=== PATIENT | female | born 1940 | race Two or more races ===

== ENCOUNTER 2023-10-12 01:58 | Day surgery (SDC) | payer OTHER | END 2023-10-12 23:11 | disposition home or self-care (01) | LOC: WOUND 01:58 | DX: L97.822 Non-pressure chronic ulcer of other part of left lower leg with fat layer exposed (principal); I73.9 Peripheral vascular disease, unspecified | CPT/HCPCS: G0463 ==

== ENCOUNTER 2023-11-09 02:42 | Day surgery (SDC) | payer OTHER ==
[2023-11-09] MEDS ORDERED: Triamcinolone Acet 0.1% Cream 15 gm ONE (13:22)
== END 2023-11-09 22:36 | disposition home or self-care (01) ==
LOC: WOUND 02:42
DX: I83.029 Varicose veins of left lower extremity with ulcer of unspecified site (principal); I87.2 Venous insufficiency (chronic) (peripheral)
CPT/HCPCS: A9270; G0463

== ENCOUNTER 2024-03-31 09:12 | Day surgery (SDC) | payer OTHER ==
[2024-03-31] VITALS (10 sets, daily range): BP systolic 117–179; BP diastolic 62–94
[~2024-03-31] VITALS: Ht 152.4 cm; Wt 52.2 kg
[~2024-03-31 09:12] MED LIST: ALPR.25 PO; BIMATOPROST5 ML BOTHEYES; CAND16 PO; ESCI10 PO; LOSA25 PO; LUMIGAN2.5 ML BOTHEYES; NITR.4SL SL; Pentoxifylline400 MG PO; TIMDOROPSO BOTHEYES; Triamcinolone A15 G3 TOP; [UNRECOGNIZED DRUG - OTHER] TOP
[2024-03-31] MEDS ORDERED: NS 250 ML IV ONE (11:14)
[2024-03-31] MEDS ORDERED: Heparin Sodium 1000 Units/ML 10ML MDV ONE (11:14)
[2024-03-31] MEDS ORDERED: NS 1,000 ML IV ONE ×2 (11:15→11:25)
[2024-03-31] MEDS ORDERED: FentaNYL Citrate 50 MCG/ML 2 ML Injection ONE ×2 (11:25→12:07)
[2024-03-31] MEDS ORDERED: Midazolam HCl 1MG / ML 2ML Vial ONE ×2 (11:25→12:06)
--- NOTE | 2024-03-31 12:45 | NUR ---
PT BACK TO RECOVERY ROOM. PT ALERT AND ORIENTED. PT VERBALIZE UNDERSTANDING TO KEEP HEAD AND LEGS DOWN VIA INTURPRETER PHONE. ANGIOSEAL TO R GROIN. NO HEMATOMA OR BLEEDING NOTED. DR LEGGETT TO ROOM TO EXPLAIN THE PROCEDURE WITH OVEN LOADER.
--- NOTE | 2024-03-31 12:45 | NUR ---
ASSUMED CARE OF PT POST PROCEDURE. PT SPEAKS MINIMAL [place], BUT IS COOPERATIVE; DAUGHTER AT BEDSIDE AND HELPS WITH TRANSLATING. PT DENIES PAIN POST PROCEDURE. MONITOR SB 40'S, B/P 157/93, SPO2 100 % RA. R FEMORAL SITE NO SWELLING/HEMATOMA, TEGADERM DRSG INTACT; ANGIO SEAL DEPLOYED, RLE: DOPPLER X 2.
--- NOTE | 2024-03-31 14:05 | NUR ---
HOB ELEVATED TO 30 DEGREES, SITE UNCHANGED. PT TAKING SOME FOOD WITHOUT ISSUE.
--- NOTE | 2024-03-31 14:33 | NUR ---
REPORT TO TAVIA FRENCH; ALL QUESTIONS ANSWERED.
--- NOTE | 2024-03-31 16:15 | NUR ---
DAUGHTER & PT. VERABLIZED UNDERSTANDING OF DISCHARGE INSTRUCTION AND PRECAUTIONS, GROIN SITE SOFT AND NONTENDER, NAMAN HEMATOMA, NO BLEEDING. NO FURTHER QUESTIONS. IV SITE DCED WITH CATHETER INTACT. PT TAKEN VIA WHEEL CHAIR TO WAITING CAR BY [employer] SQUIRES. DAUGHTER DRIVING
== END 2024-03-31 23:00 | disposition home or self-care (01) ==
LOC: MHTC 09:12
DX: I70.202 Unspecified atherosclerosis of native arteries of extremities, left leg (principal); Q27.30 Arteriovenous malformation, site unspecified; L97.529 Non-pressure chronic ulcer of other part of left foot with unspecified severity; I10 Essential (primary) hypertension; M79.3 Panniculitis, unspecified; I83.91 Asymptomatic varicose veins of right lower extremity
CPT/HCPCS: 37228; 75625; 75716; 75774; 76937; 99152; 99153; C1725; C1760; C1769; C1887; C1894; J1644; J2250; J3010; J7030; J7050; Q9967